=== PATIENT | female | born 1940 | race Caucasian/White ===

== ENCOUNTER 2018-06-23 14:24 | Emergency (ER) | payer MEDICARE ==
[2018-06-23] MEDS ORDERED: Sodium Chloride 0.9% 10 ML Syringe FLUSH PRN (15:35)
--- NOTE | 2018-06-23 15:41 | EDM.PDOC ---
<OfficerEric - Last Filed: 06/23/18 18:26> ED HPI GENERAL MEDICAL PROBLEM - General Chief Complaint: General Stated Complaint: SOB Time Seen by Provider: 06/23/18 15:24 Source of Information: Reports: Patient, Family, Old Records, RN Notes Reviewed History Limitations: Reports: No Limitations - History of Present Illness INITIAL COMMENTS - FREE TEXT/NARRATIVE: 78-year-old female presents emergency department today with increasing weakness , she has a known history of COPD does have chronic shortness of breath which is oxygen dependent. States she feels more short of breath than usual over the last couple days she has had some diarrhea loose stools did do trial of ciprofloxacin without any relief feels she is not been keeping up on her oral intake his usual complaints of generalized muscle aches no fevers no chest pain no nausea or vomiting - Related Data Allergies Allergy/AdvReac Type Severity Reaction Status Date / Time No Known Allergies Allergy Verified 06/23/18 15:01 Home Meds: Home Meds Albuterol Sulfate [Proair Hfa] 1 puff INH DAILY 03/22/13 [History] Beclomethasone Dipropionate [Qvar 40 Mcg] 1 puff INH DAILY 03/22/13 [History] Celecoxib 100 mg PO BID 06/23/18 [History] predniSONE 20 mg PO WITHBREAKFAST #10 tab 06/23/18 [Rx] Past Medical History HEENT History: Reports: Macular Degeneration Other HEENT History: Poor vision l eye Cardiovascular History: Reports: Hypertension Respiratory History: Reports: COPD, Other (See Below) Other Respiratory History: emphysema Genitourinary History: Reports: Other (See Below) Other Genitourinary History: 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: Psychiatric History: Reports: Anxiety - Infectious Disease History Infectious Disease History: Reports: Chicken Pox, Measles, Mumps - Past Surgical History Female Surgical History: Reports: None Social & Family History - Family History : Reports: Diabetic Nephropathy Neurological: Reports: Alzheimers Disease Endocrine/Metabolic: Reports: Diabetes, type II Oncologic: Reports: Liver, Prostate - Tobacco Use Smoking Status *Q: Former Smoker Years of Tobacco use: 50 Packs/Tins Daily: 1 Used Tobacco, but Quit: Yes Month/Year Tobacco Last Used: 1999 - Caffeine Use Caffeine Use: Reports: Coffee - Recreational Drug Use Recreational Drug Use: No ED ROS GENERAL - Review of Systems Review Of Systems: See Below Constitutional: Reports: Weakness HEENT: Reports: No Symptoms Respiratory: Reports: Shortness of Breath Cardiovascular: Reports: Dyspnea on Exertion GI/Abdominal: Reports: No Symptoms : Reports: No Symptoms Musculoskeletal: Reports: Muscle Pain, Muscle Stiffness Skin: Reports: No Symptoms Neurological: Reports: Weakness ED EXAM, GENERAL - Physical Exam Exam: See Below Exam Limited By: No Limitations General Appearance: Alert, WD/WN, No Apparent Distress Eye Exam: Bilateral Eye: Normal Inspection Nose: Normal Inspection, Normal Mucosa, No Blood Throat/Mouth: Normal Lips, Other (Dry mucous membranes) Head: Atraumatic, Normocephalic Neck: Normal Inspection, Supple, Non-Tender, Full Range of Motion Respiratory/Chest: No Respiratory Distress, Decreased Breath Sounds Cardiovascular: Regular Rate, Rhythm, No Murmur GI/Abdominal: Soft, Non-Tender Back Exam: Normal Inspection, Full Range of Motion. No: CVA Tenderness (R), CVA Tenderness (L) Extremities: Non-Tender, No Pedal Edema Course - Vital Signs Last Recorded V/S: Last Vital Signs Temp 96.0 F 06/23/18 14:59 Pulse 97 06/23/18 17:44 Resp 21 H 06/23/18 17:44 BP 138/75 06/23/18 17:44 Pulse Ox 100 06/23/18 17:44 - Orders/Labs/Meds Orders: Active Orders 24 hr Category Date Time Status Cardiac Monitoring [RC] .As Directed Care 06/23/18 15:36 Active Peripheral IV Care [RC] . DIRECTED Care 06/23/18 15:36 Active Peripheral IV Insertion Adult [OM.PC] Stat Oth 06/23/18 15:35 Ordered Labs: Laboratory Tests 06/23/18 06/23/18 06/23/18 Range/Units 15:55 15:55 15:55 WBC 19.2 H (4.5-11.0) K/uL RBC 4.18 (3.30-5.50) M/uL Hgb 12.3 (12.0-15.0) g/dL Hct 39.2 (36.0-48.0) % MCV 94 (80-98) fL MCH 29 (27-31) pg MCHC 31 L (32-36) % Plt Count 565 H (150-400) K/uL Neut % (Auto) 83 H (36-66) % Lymph % (Auto) 5 L (24-44) % Dolores % (Auto) 10 H (2-6) % Eos % (Auto) 1 L (2-4) % Baso % (Auto) 0 (0-1) % D-Dimer, Quantitative 763 H (0.0-400.0) ng/mL Sodium 132 L (140-148) mmol/L Potassium 3.8 (3.6-5.2) mmol/L Chloride 95 L (100-108) mmol/L Carbon Dioxide 33 H (21-32) mmol/L Anion Gap 7.8 (5.0-14.0) mmol/L BUN 11 D (7-18) mg/dL Creatinine 0.4 L (0.6-1.0) mg/dL Est Cr Clr Drug Dosing 67.31 mL/min Estimated GFR (MDRD) > 60 (>60) Glucose 99 (74-106) mg/dL Lactic Acid (0.4-2.0) mmol/L Calcium 8.8 (8.5-10.1) mg/dL Total Bilirubin 0.2 D (0.2-1.0) mg/dL AST 17 (15-37) U/L ALT 16 (12-78) U/L Alkaline Phosphatase 113 (46-116) U/L Creatine Kinase (26-192) U/L Troponin I < 0.017 (0.000-0.056) ng/mL Total Protein 6.3 L (6.4-8.2) g/dL Albumin 2.4 L (3.4-5.0) g/dL Globulin 3.9 H (2.3-3.5) g/dL Albumin/Globulin Ratio 0.6 L (1.2-2.2) TSH, Ultra Sensitive (0.358-3.740) uIU/mL Urine Color Urine Appearance Urine pH (4.5-8.0) Ur Specific [place] (1.008-1.030) Urine Protein (NEGATIVE) mg/dL Urine Glucose (UA) (NEGATIVE) mg/dL Urine Ketones (NEGATIVE) mg/dL Urine Occult Blood (NEGATIVE) Urine Nitrite (NEGATIVE) Urine Bilirubin (NEGATIVE) Urine Urobilinogen (NORMAL) mg/dL Ur Leukocyte Esterase (NEGATIVE) Urine RBC (0-5) Urine WBC (0-5) Ur Epithelial Cells Amorphous Sediment Urine Bacteria Urine Mucus 06/23/18 06/23/18 06/23/18 Range/Units 15:55 16:22 16:31 WBC (4.5-11.0) K/uL RBC (3.30-5.50) M/uL Hgb (12.0-15.0) g/dL Hct (36.0-48.0) % MCV (80-98) fL MCH (27-31) pg MCHC (32-36) % Plt Count (150-400) K/uL Neut % (Auto) (36-66) % Lymph % (Auto) (24-44) % Dolores % (Auto) (2-6) % Eos % (Auto) (2-4) % Baso % (Auto) (0-1) % D-Dimer, Quantitative (0.0-400.0) ng/mL Sodium (140-148) mmol/L Potassium (3.6-5.2) mmol/L Chloride (100-108) mmol/L Carbon Dioxide (21-32) mmol/L Anion Gap (5.0-14.0) mmol/L BUN (7-18) mg/dL Creatinine (0.6-1.0) mg/dL Est Cr Clr Drug Dosing mL/min Estimated GFR (MDRD) (>60) Glucose (74-106) mg/dL Lactic Acid 1.2 (0.4-2.0) mmol/L Calcium (8.5-10.1) mg/dL Total Bilirubin (0.2-1.0) mg/dL AST (15-37) U/L ALT (12-78) U/L Alkaline Phosphatase (46-116) U/L Creatine Kinase 21 L (26-192) U/L Troponin I (0.000-0.056) ng/mL Total Protein (6.4-8.2) g/dL Albumin (3.4-5.0) g/dL Globulin (2.3-3.5) g/dL Albumin/Globulin Ratio (1.2-2.2) TSH, Ultra Sensitive (0.358-3.740) uIU/mL Urine Color Yellow Urine Appearance Clear Urine pH 6.0 (4.5-8.0) Ur Specific [place] 1.015 (1.008-1.030) Urine Protein Negative (NEGATIVE) mg/dL Urine Glucose (UA) Normal (NEGATIVE) mg/dL Urine Ketones Negative (NEGATIVE) mg/dL Urine Occult Blood Negative (NEGATIVE) Urine Nitrite Negative (NEGATIVE) Urine Bilirubin Negative (NEGATIVE) Urine Urobilinogen 1 (NORMAL) mg/dL Ur Leukocyte Esterase Negative (NEGATIVE) Urine RBC Not seen (0-5) Urine WBC 0-5 (0-5) Ur Epithelial Cells Few Amorphous Sediment Not seen Urine Bacteria Not seen Urine Mucus Not seen 06/23/18 Range/Units 16:38 WBC (4.5-11.0) K/uL RBC (3.30-5.50) M/uL Hgb (12.0-15.0) g/dL Hct (36.0-48.0) % MCV (80-98) fL MCH (27-31) pg MCHC (32-36) % Plt Count (150-400) K/uL Neut % (Auto) (36-66) % Lymph % (Auto) (24-44) % Dolores % (Auto) (2-6) % Eos % (Auto) (2-4) % Baso % (Auto) (0-1) % D-Dimer, Quantitative (0.0-400.0) ng/mL Sodium (140-148) mmol/L Potassium (3.6-5.2) mmol/L Chloride (100-108) mmol/L Carbon Dioxide (21-32) mmol/L Anion Gap (5.0-14.0) mmol/L BUN (7-18) mg/dL Creatinine (0.6-1.0) mg/dL Est Cr Clr Drug Dosing mL/min Estimated GFR (MDRD) (>60) Glucose (74-106) mg/dL Lactic Acid (0.4-2.0) mmol/L Calcium (8.5-10.1) mg/dL Total Bilirubin (0.2-1.0) mg/dL AST (15-37) U/L ALT (12-78) U/L Alkaline Phosphatase (46-116) U/L Creatine Kinase (26-192) U/L Troponin I (0.000-0.056) ng/mL Total Protein (6.4-8.2) g/dL Albumin (3.4-5.0) g/dL Globulin (2.3-3.5) g/dL Albumin/Globulin Ratio (1.2-2.2) TSH, Ultra Sensitive 1.962 (0.358-3.740) uIU/mL Urine Color Urine Appearance Urine pH (4.5-8.0) Ur Specific [place] (1.008-1.030) Urine Protein (NEGATIVE) mg/dL Urine Glucose (UA) (NEGATIVE) mg/dL Urine Ketones (NEGATIVE) mg/dL Urine Occult Blood (NEGATIVE) Urine Nitrite (NEGATIVE) Urine Bilirubin (NEGATIVE) Urine Urobilinogen (NORMAL) mg/dL Ur Leukocyte Esterase (NEGATIVE) Urine RBC (0-5) Urine WBC (0-5) Ur Epithelial Cells Amorphous Sediment Urine Bacteria Urine Mucus Meds: Medications Discontinued Medications Generic Name Dose Route Start Last Admin Trade Name Freq PRN Reason Stop Dose Admin Lactated Ringer's 1,000 mls @ 999 mls/hr 06/23/18 15:45 06/23/18 16:35 Ringers, Lactated IV 999 mls/hr ASDIRECTED CHANTELLE Administration Sodium Chloride 80 mls @ 3.5 mls/sec 06/23/18 17:05 06/23/18 17:45 Normal Saline IV 06/23/18 17:06 3.5 mls/sec ONETIME ONE Administration Iopamidol 100 ml 06/23/18 17:15 06/23/18 17:46 Isovue-370 (76%) IV 06/23/18 17:16 100 ml . DIRECTED CHANTELLE Administration Prednisone 20 mg 06/23/18 18:23 06/23/18 18:31 Prednisone PO 06/23/18 18:24 20 mg ONETIME ONE Administration Sodium Chloride 10 ml 06/23/18 15:35 06/23/18 16:35 Saline Flush FLUSH 10 ml ASDIRECTED PRN Administration Keep Vein Open Sodium Chloride 10 ml 06/23/18 17:05 06/23/18 17:44 Saline Flush FLUSH 06/23/18 17:06 10 ml ONETIME ONE Administration Departure - Departure Disposition: Home, Self-Care 01 Clinical Impression: Myalgia and myositis - Discharge Information Prescriptions: predniSONE 20 mg PO WITHBREAKFAST #10 tab Instructions: Muscle Pain, Adult Referrals: Sarbjit Gonzales MD [Primary Care Provider] - Forms: ED Department Discharge Care Plan Goals: Take medications as recommended and prescribed by Officer, and recheck later this week if not improving satisfactorily. - Assessment/Plan Plan: Assessment Acuity = acute Site and laterality = generalized muscle weakness and pain with increasing shortness of breath complicated in a patient with known history of COPD suspicious for underlying polymyalgia rheumatica Etiology = unknown certain etiology Manifestations = none Location of injury = Home Lab values = WBC elevated 19.2 consistent leukocytosis sedimentation rate elevated at 68 d-dimer elevated 763 of uncertain significance sodium low at 132 consistent hyponatremia albumin low at 2.4 consistent hypoalbuminemia urinalysis negative CT scan of chest is pending Plan She was were given 1 dose of prednisone 20 mg in the emergency department plan is 20 mg once a day medications have been faxed to [facility] for the next few days she will follow-up primary care in 3-5 days for reevaluation if it is polymyalgia rheumatica she will feel markedly better within 24-48 hours if not recommend stopping the prednisone and continue further evaluation. Care was turned over to Dr. Galvez at [address] scan This note was dictated using [employer] voice recognition software please call with any questions on syntax or grammar. <Goldy Galvez D - Last Filed: 06/23/18 22:52> Course - Re-Assessments/Exams Free Text/Narrative Re-Assessment/Exam: 06/23/18 22:51 Care turned over from Dr. Amaro pending a CT angiogram to rule out PE. It was negative. She was discharged to follow his advice and prescription of prednisone. Departure - Departure Time of Disposition: 18:46 Condition: Good
[2018-06-23] MEDS ORDERED: Lactated Ringers 1,000 ML IV SCH (15:45)
--- NOTE | 2018-06-23 16:09 | CRLCR ---
INDICATION: Shortness of breath. TECHNIQUE: Two views of the chest PA and lateral. COMPARISON: Two views of the chest 04/09/2015. FINDINGS: The lungs are hyperinflated with flattening of the hemidiaphragms compatible with chronic obstructive pulmonary disease. Heart and mediastinum are unchanged. There is blunting of the right costophrenic angle consistent with a small pleural effusion. Trachea is midline. No pneumothorax. External monitoring leads overlying the patient. IMPRESSION: 1. Hyperinflation with flattening of the hemidiaphragms compatible with chronic obstructive pulmonary disease. 2. Blunting of the right costophrenic angle consistent with a small pleural effusion. Dictated by Jayden Alfredo MD @ Jun 23 2018 4:05PM Signed by Dr. Jayden Alfredo @ Jun 23 2018 4:09PM
[2018-06-23] MEDS: Iopamidol 755 Mg/ML 100 ML Bottle IV SCH ×2 (17:42→17:46)
[2018-06-23] MEDS: Sodium Chloride 0.9% 80 ML IV ONE ×2 (17:43→17:45)
[2018-06-23] MEDS: Sodium Chloride 0.9% 10 ML Syringe FLUSH ONE ×2 (17:43→17:44)
[2018-06-23 17:44] VITALS: BP 138/75
[2018-06-23] MEDS ORDERED: predniSONE 20 MG Tab PO ONE (18:23)
--- NOTE | 2018-06-23 18:34 | CRLCT ---
INDICATION: Shortness of breath and elevated D-dimer TECHNIQUE: CT chest with i.v. contrast using pulmonary angiographic technique. Coronal and sagittal reformats were obtained. CONTRAST: 44 mL Isovue 370 COMPARISON: None FINDINGS: Cardiovascular: The pulmonary arteries are unremarkable in enhancement with no evidence of acute pulmonary embolism. The heart has an unremarkable appearance and size. 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 The posterior aortic arch measures 3.4 cm. The ascending aorta is also enlarged, measuring 3.7 cm. Mediastinum: No mass or adenopathy seen. Lung: Severe centrilobular and panlobular emphysema noted bilaterally. Clusters of small subpleural nodules are present in the anterior left lower lobe, posterior right upper lobe and right lower lobe. Findings may be due to chronic bronchiolitis. An opacified and dilated peripheral bronchial is present in the medial right middle lobe. Pleura and pericardium: No sign of pleural effusion seen. No significant pericardial effusion is present. Chest wall and axilla: No mass or adenopathy seen. Bone: Unremarkable for age. Upper abdomen: Unremarkable. IMPRESSIONS: 1. No CT evidence of acute pulmonary emboli seen. 2. 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 The posterior aortic arch measures 3.4 cm. The ascending aorta is also enlarged, measuring 3.7 cm. 3. An opacified and dilated peripheral bronchial is present in the medial right middle lobe. Dictated by Leon Scruggs MD @ 06/23/2018 6:32:47 PM Please note that all CT scans at this facility use dose modulation, iterative reconstruction, and/or weight-based dosing when appropriate to reduce radiation dose to as low as reasonably achievable. Dictated by: Leon Scruggs MD @ 06/23/2018 18:32:49 (Electronically Signed)
== END 2018-06-23 18:58 | disposition home or self-care (01) ==
LOC: JP.ED 14:24
DX: M60.9 Myositis, unspecified (principal); J44.9 Chronic obstructive pulmonary disease, unspecified; I10 Essential (primary) hypertension; Z87.891 Personal history of nicotine dependence; Z79.899 Other long term (current) drug therapy
CPT/HCPCS: 36415; 71046; 71275; 80053; 81001; 82550; 83605; 84443; 84484; 85025; 85379; 96360; 99285; A9270; J7030; J7120; Q9967

== ENCOUNTER 2019-07-13 10:08 | Emergency (ER) | payer MEDICARE ==
[2019-07-13] MEDS ORDERED: Acetaminophen 325 MG Tab PO ONE (11:11)
--- NOTE | 2019-07-13 11:11 | EDM.PDOC ---
ED HPI GENERAL MEDICAL PROBLEM - General Chief Complaint: Respiratory Problem Stated Complaint: SOB Time Seen by Provider: 07/13/19 10:40 Source of Information: Reports: Patient, Old Records, Provider, RN History Limitations: Reports: No Limitations - History of Present Illness INITIAL COMMENTS - FREE TEXT/NARRATIVE: 79 yo female with known COPD presents to the ER on referral from the [facility] for reported hypoxia to the mid 70's on oxygen at 2 liters/min/NC. She usually uses oxygen at night and prn during the day. Denies fever or a productive cough. She gets little relief with her nebulizers. No recent calf pain or LE edema. She has sharp pain in the R shoulder with deep breathing or coughing. She quit smoking about 20 yrs ago. No hx of CHF. Current sx's have been present for about 1.5 wks. Does OK with her breathing at rest, but is very SOB with activity. Onset: Gradual Onset Date: 07/01/19 Duration: Week(s): (1.5), Getting Worse Location: Reports: Chest, Upper Extremity, Right (shoulder) Quality: Reports: Sharp (in R shoulder) Severity: Moderate Improves with: Reports: Rest (and shallow breathing) Worsens with: Reports: Movement (of shoulder or deep breathing) Context: Reports: Other (see HPI) Associated Symptoms: Reports: Shortness of Breath. 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 - Related Data Allergies Allergy/AdvReac Type Severity Reaction Status Date / Time No Known Allergies Allergy Verified 07/13/19 10:21 Home Meds: Home Meds Celecoxib 100 mg PO BID 06/23/18 [History] Albuterol/Ipratropium [DuoNeb 3.0-0.5 MG/3 ML] 3 ml INH Q4H PRN 07/13/19 [ History] Aspirin [Halfprin] 81 mg PO DAILY 07/13/19 [History] Budesonide [Pulmicort] 2 ml INH BID 07/13/19 [History] predniSONE [Prednisone] 7.5 mg PO DAILY 07/13/19 [History] predniSONE [Prednisone] 10 mg PO BID #14 tab.ds.pk 07/13/19 [Rx] Past Medical History HEENT History: Reports: Macular Degeneration Other HEENT History: Poor vision l eye Cardiovascular History: Reports: Hypertension Respiratory History: Reports: COPD, Other (See Below) Other Respiratory History: emphysema Genitourinary History: Reports: Other (See Below) 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: Psychiatric History: Reports: Anxiety Endocrine/Metabolic History: Reports: None - Infectious Disease History Infectious Disease History: Reports: Chicken Pox, Measles, Mumps - Past Surgical History Head Surgeries/Procedures: Reports: None HEENT Surgical History: Reports: None Cardiovascular Surgical History: Reports: None Respiratory Surgical History: Reports: None Female Surgical History: Reports: None Dermatological Surgical History: Reports: None Social & Family History - Family History : Reports: Diabetic Nephropathy Neurological: Reports: Alzheimers Disease Endocrine/Metabolic: Reports: Diabetes, type II Oncologic: Reports: Liver, Prostate - Tobacco Use Smoking Status *Q: Former Smoker Years of Tobacco use: 30 Packs/Tins Daily: 1 Used Tobacco, but Quit: Yes Month/Year Tobacco Last Used: 1989 - Caffeine Use Caffeine Use: Reports: Coffee - Recreational Drug Use Recreational Drug Use: No ED ROS GENERAL - Review of Systems Review Of Systems: See Below Constitutional: Reports: No Symptoms. Denies: Fever, Chills, Diaphoresis HEENT: Reports: No Symptoms Respiratory: Reports: Shortness of Breath. Denies: Wheezing, Pleuritic Chest Pain, Cough, Sputum, Hemoptysis Cardiovascular: Reports: No Symptoms GI/Abdominal: Reports: No Symptoms : Reports: No Symptoms Musculoskeletal: Reports: Shoulder Pain (R associated with deep breathing or movement of that shoulder) Skin: Reports: No Symptoms Psychiatric: Reports: No Symptoms ED EXAM, GENERAL - Physical Exam Exam: See Below Exam Limited By: No Limitations General Appearance: Alert, No Apparent Distress, Thin Eye Exam: Bilateral Eye: Normal Inspection Ears: Normal External Exam, Normal Canal, Hearing Loss Ear Exam: Bilateral Ear: Auricle Normal, Canal Normal, TM normal Nose: Normal Inspection, No Blood Throat/Mouth: Normal Inspection, Normal Lips, Normal Oropharynx, Normal Voice, No Airway Compromise Head: Atraumatic, Normocephalic Neck: Normal Inspection Respiratory/Chest: No Respiratory Distress, Lungs Clear, No Accessory Muscle Use , Decreased Breath Sounds. No: Normal Breath Sounds, Respiratory Distress Cardiovascular: Regular Rate, Rhythm, No Edema Back Exam: Normal Inspection. No: CVA Tenderness (R), CVA Tenderness (L) Extremities: Normal Inspection, Normal Range of Motion, Non-Tender, No Pedal Edema, Other (No palpable pain on R shoulder exam) Neurological: Alert, Oriented, CN II-XII Intact, Normal Cognition, No Motor/ Sensory Deficits Psychiatric: Normal Affect, Normal Mood Skin Exam: Warm, Dry, Intact, Normal Color, No Rash Course - Vital Signs Text/Narrative:: d-dimer elevated, but is less than when she was last checked. Last Recorded V/S: Last Vital Signs Temp 35.8 C L 07/13/19 10:19 Pulse 82 07/13/19 11:55 Resp 16 07/13/19 11:55 BP 146/71 H 07/13/19 11:55 Pulse Ox 99 07/13/19 11:55 - Orders/Labs/Meds Orders: Active Orders 24 hr Category Date Time Status Cardiac Monitoring [RC] .As Directed Care 07/13/19 10:27 Active Labs: Laboratory Tests 07/13/19 Range/Units 11:09 D-Dimer, Quantitative 666 H (0.0-400.0) ng/mL Meds: Medications Discontinued Medications Generic Name Dose Route Start Last Admin Trade Name Garyq PRN Reason Stop Dose Admin Acetaminophen 650 mg 07/13/19 11:11 07/13/19 11:17 Tylenol PO 07/13/19 11:12 650 mg NOW ONE Administration - Radiology Interpretation Free Text/Narrative:: CXR-No change since last study Departure - Departure Time of Disposition: 12:10 Disposition: Home, Self-Care 01 Condition: Fair Clinical Impression: COPD (chronic obstructive pulmonary disease) Qualifiers: COPD type: COPD with acute exacerbation Qualified Code(s): J44.1 - Chronic obstructive pulmonary disease with (acute) exacerbation - Discharge Information *PRESCRIPTION DRUG MONITORING PROGRAM REVIEWED*: Not Applicable *COPY OF PRESCRIPTION DRUG MONITORING REPORT IN PATIENT ODELL: Not Applicable Prescriptions: predniSONE [Prednisone] 10 mg PO BID #14 tab.ds.pk Referrals: PCP,None [Primary Care Provider] - Forms: ED Department Discharge Additional Instructions: Take prednisone as directed with food for the next week. Recheck in the clinic in a week. Take acetaminophen up to 650 mg every 4 hrs for pain relief as needed. If your right shoulder still hurts next week you may need a referral to physical therapy. Return if worse. Use your oxygen at 1 liter/min/nasal cannula at night and during the day as needed. Sepsis Event Note - Evaluation Sepsis Screening Result: No Definite Risk - Focused Exam Vital Signs: Vital Signs Temp Pulse Pulse Resp BP Pulse Ox 07/13/19 11:55 82 16 146/71 H 99 07/13/19 10:35 99 22 H 167/92 H 100 07/13/19 10:20 93 L 07/13/19 10:19 35.8 C L 95 117 H 24 H 172/87 H 82 L Date Exam was Performed: 07/13/19 Time Exam was Performed: 12:04 - My Orders Last 24 Hours: My Active Orders 07/13/19 10:27 Cardiac Monitoring [RC] .As Directed - Assessment/Plan Last 24 Hours: My Active Orders 07/13/19 10:27 Cardiac Monitoring [RC] .As Directed
--- NOTE | 2019-07-13 11:21 | CR ---
CHEST: 2 view CLINICAL HISTORY:Right pleuritic chest pain COMPARISON: June of 2018 FINDINGS: The heart size, pulmonary vascularity and hilar structures are normal. There are atherosclerotic changes in the aorta. The lungs are significantly emphysematous. No infiltrate effusion or pneumothorax is seen. IMPRESSION: Severe emphysematous changes No acute cardiopulmonary process.
[2019-07-13 11:56] VITALS: BP 146/71; PULSE 82
== END 2019-07-13 12:20 | disposition home or self-care (01) ==
LOC: JP.ED 10:08
DX: J44.1 Chronic obstructive pulmonary disease with (acute) exacerbation (principal); I10 Essential (primary) hypertension; F41.9 Anxiety disorder, unspecified; Z87.891 Personal history of nicotine dependence; Z79.899 Other long term (current) drug therapy; Z79.82 Long term (current) use of aspirin
CPT/HCPCS: 36415; 71046; 85379; 99284; A9270

== ENCOUNTER 2019-09-21 13:09 | Emergency (ER) | payer MEDICARE ==
[2019-09-21 14:09] VITALS: BP 148/60; PULSE 89
--- NOTE | 2019-09-21 14:21 | EDM.PDOC ---
ED HPI GENERAL MEDICAL PROBLEM - General Chief Complaint: General Stated Complaint: LOW PULSE RATE Time Seen by Provider: 09/21/19 13:44 Source of Information: Reports: Patient, Family, RN Notes Reviewed History Limitations: Reports: No Limitations - History of Present Illness INITIAL COMMENTS - FREE TEXT/NARRATIVE: 79-year-old female known history of COPD concerned her pulse oximeter is reading 26% however she felt normal for her is here to the emergency department to have her pulse oximeter evaluated. At this time she feels her normal self - Related Data Allergies Allergy/AdvReac Type Severity Reaction Status Date / Time No Known Allergies Allergy Verified 07/13/19 10:21 Home Meds: Home Meds Celecoxib 100 mg PO BID 06/23/18 [History] Albuterol/Ipratropium [DuoNeb 3.0-0.5 MG/3 ML] 3 ml INH Q4H PRN 07/13/19 [History] Aspirin [Halfprin] 81 mg PO DAILY 07/13/19 [History] Budesonide [Pulmicort] 2 ml INH BID 07/13/19 [History] predniSONE [Prednisone] 7.5 mg PO DAILY 07/13/19 [History] Past Medical History HEENT History: Reports: Macular Degeneration Other HEENT History: Poor vision l eye Cardiovascular History: Reports: Hypertension Respiratory History: Reports: COPD, Other (See Below) Other Respiratory History: emphysema Genitourinary History: Reports: Other (See Below) Other Genitourinary History: Urgency with dyspnea [employer] History: Reports: Psychiatric History: Reports: Anxiety Endocrine/Metabolic History: Reports: None - Infectious Disease History Infectious Disease History: Reports: Chicken Pox, Measles, Mumps - Past Surgical History Head Surgeries/Procedures: Reports: None HEENT Surgical History: Reports: None Cardiovascular Surgical History: Reports: None Respiratory Surgical History: Reports: None Female Surgical History: Reports: None Dermatological Surgical History: Reports: None Social & Family History - Family History : Reports: Diabetic Nephropathy Neurological: Reports: Alzheimers Disease Endocrine/Metabolic: Reports: Diabetes, type II Oncologic: Reports: Liver, Prostate - Tobacco Use Smoking Status *Q: Never Smoker - Caffeine Use Caffeine Use: Reports: Coffee ED ROS GENERAL - Review of Systems Review Of Systems: See Below Constitutional: Reports: No Symptoms ED EXAM, GENERAL - Physical Exam Exam: See Below Free Text/Narrative:: Both pulse oximetry use her home meter and the machine meter in the emergency department read the same value O2 sat between 89 and 92% Exam Limited By: No Limitations General Appearance: Alert, WD/WN, No Apparent Distress Respiratory/Chest: No Respiratory Distress Course - Vital Signs Last Recorded V/S: Last Vital Signs Temp 98.6 F 09/21/19 14:09 Pulse 89 09/21/19 14:09 Resp 18 09/21/19 14:09 BP 148/60 H 09/21/19 14:09 Pulse Ox 92 L 09/21/19 14:09 Departure - Departure Time of Disposition: 14:21 Disposition: Home, Self-Care 01 Condition: Fair Clinical Impression: Abnormal pulse oximetry - Discharge Information Referrals: Sarbjit Gonzales MD [Primary Care Provider] - Additional Instructions: Follow-up primary care as needed Sepsis Event Note (ED) - Evaluation Sepsis Screening Result: No Definite Risk - Focused Exam Vital Signs: Vital Signs Temp Pulse Resp BP Pulse Ox 09/21/19 14:09 98.6 F 89 18 148/60 H 92 L 09/21/19 14:06 98.6 F 89 18 148/60 H 92 L - Assessment/Plan Plan: Assessment Acuity = acute Site and laterality = pulse oximeter check Etiology = unknown Manifestations = none Location of injury = Home Lab values = none Plan Follow-up with primary care as needed This note was dictated using [employer] voice recognition software please call with any questions on syntax or grammar.
== END 2019-09-21 15:28 | disposition home or self-care (01) ==
LOC: JP.ED 13:09
DX: R09.02 Hypoxemia (principal); I10 Essential (primary) hypertension; J44.9 Chronic obstructive pulmonary disease, unspecified; Z79.82 Long term (current) use of aspirin; Z79.899 Other long term (current) drug therapy
CPT/HCPCS: 99283